=== PATIENT | female | born 1975 | race Caucasian/White ===

== ENCOUNTER 2018-10-11 00:31 | Outpatient (CLI) | payer OTHER, SELFPAY ==
--- NOTE | 2018-10-11 14:29 | DI.RAD_ITS ---
SYMPTOMS/DIAGNOSIS: VITAMIN D DEFICIENCY, E55.9 DEXA SCAN: Routine examination. Evaluation of the lateral spine shows no compression deformities. Evaluation of the lumbar spine shows a total T score of 0.1 and a Z score of 0.6. Evaluation of the left hip shows a total T score of 0.5 and a Z score of 0.8, which are within normal limits. No osteoporosis or osteopenia is present. IMPRESSION: No evidence of osteoporosis.
== END 2018-10-11 00:51 ==
PROVIDERS: Visit Provider Nurse Practitioner
DX: E55.9 Vitamin D deficiency, unspecified (principal)
CPT/HCPCS: 77080

== ENCOUNTER 2019-03-15 15:20 | Outpatient (CLI) | payer OTHER, SELFPAY ==
[2019-03-15 16:36] LABS: Iron 57 ug/dL (50-175)
[2019-03-15 16:42] LABS: Hemoglobin A1C 5.4 % (4.5-6.2)
[2019-03-15 16:45] LABS: Ferritin 121 ng/mL (8-388); TSH 2.56 uIU/mL (0.358-3.74)
[2019-03-16 08:50] LABS: Vitamin D 25 Total 63.9 ng/ml (30-100)
== END 2019-03-15 15:40 ==
PROVIDERS: Visit Provider Nurse Practitioner Family
DX: Z98.84 Bariatric surgery status (principal)
CPT/HCPCS: 36415; 82306; 82728; 83036; 83540; 84443

== ENCOUNTER 2019-12-16 09:48 | Outpatient (CLI) | payer OTHER, SELFPAY ==
[2019-12-16 10:34] LABS: HCT 43.5 % (36.0-46.0); HGB 13.7 g/dL (12.0-15.5); Mean Corp. HGB Concentration 31.5 g/dL (32.0-36.0); Mean Corpuscular Hemoglobin 29.3 pg (27.0-33.0); Mean Corpuscular Volume 92.9 fL (80-95); Mean Platelet Volume 9.5 fL (8.0-11.0); Platelet Count 415 x1000/uL (130-400); RBC 4.68 m/cumm (4.00-5.20); RBC Distribution Width 13.7 % (11.7-14.6); White Blood Cell Count 7.97 k/cumm (4.4-10.8)
[2019-12-16 11:16] LABS: Iron 95 ug/dL (50-170); Total Iron Binding Capacity 288 ug/dL (250-450); Transferrin Sat 33 % (15-50)
[2019-12-16 11:42] LABS: ALT 43 U/L (14-59); AST 23 U/L (15-37); Ferritin 149 ng/mL (8-252); TSH (W/Ref FT4) 2.96 uIU/mL (0.36-3.74); Vitamin B12 1109 pg/mL (193-986)
[2019-12-18 12:16] LABS: Parathyroid Hormone,Intact 60 pg/mL (19-88)
[2019-12-19 07:53] LABS: Thiamine (Vitamin B1), WB 181 nmol/L (70-180)
[2019-12-20 01:33] LABS: Free Retinol (Vitamin A) 49.3 mcg/dL (32.5-78.0)
[2019-12-22 12:23] LABS: 1,25-Dihydroxyvitamin D 64 pg/mL (18-78)
== END 2019-12-16 10:08 ==
PROVIDERS: PCP Nurse Practitioner Family; Visit Provider Nurse Practitioner Family
DX: E66.01 Morbid (severe) obesity due to excess calories (principal); Z98.84 Bariatric surgery status; E21.5 Disorder of parathyroid gland, unspecified; E83.50 Unspecified disorder of calcium metabolism
CPT/HCPCS: 36415; 85027; 82310; 82607; 82652; 82728; 83540; 83550; 83970; 84425; 84443; 84450; 84460; 84590

== ENCOUNTER 2020-06-13 08:47 | Outpatient (REF) | payer OTHER, SELFPAY ==
[2020-06-13 21:47] LABS: Calculated LDL 144 mg/dL (<100); Cholesterol 217 mg/dL (<200); HDL Cholesterol 43 mg/dL (40-60); Triglyceride 153 mg/dL (<150)
[2020-06-17 11:10] LABS: HIV-1/2 Ag & Ab Screen Negative (Negative)
== END 2020-06-13 09:07 ==
LOC: NCHCN 08:47
PROVIDERS: PCP Nurse Practitioner Family; Visit Provider Nurse Practitioner Family
DX: R73.03 Prediabetes (principal); E55.9 Vitamin D deficiency, unspecified; K75.81 Nonalcoholic steatohepatitis (NASH); Z11.4 Encounter for screening for human immunodeficiency virus [HIV]; E11.319 Type 2 diabetes mellitus with unspecified diabetic retinopathy without macular edema; E66.01 Morbid (severe) obesity due to excess calories; M79.7 Fibromyalgia; K58.9 Irritable bowel syndrome, unspecified; G47.30 Sleep apnea, unspecified
CPT/HCPCS: 80061; 87389

== ENCOUNTER 2021-02-24 16:54 | Outpatient (REF) | payer OTHER, SELFPAY ==
[2021-02-25 11:33] LABS: COVID-19 RT-PCR UVMMC Result Negative (Negative)
== END 2021-02-24 16:55 | disposition home or self-care (01) ==
LOC: NCHCN 16:54
PROVIDERS: PCP Nurse Practitioner Family; Visit Provider Nurse Practitioner Family
DX: Z20.828 Contact with and (suspected) exposure to other viral communicable diseases (principal)
CPT/HCPCS: U0003

== ENCOUNTER 2021-02-28 12:08 | Outpatient (REF) | payer OTHER, SELFPAY ==
[2021-03-01 16:55] LABS: COVID-19 RT-PCR UVMMC Result Negative (Negative)
== END 2021-02-28 12:09 | disposition home or self-care (01) ==
LOC: NCHCN 12:08
PROVIDERS: PCP Nurse Practitioner Family; Visit Provider Nurse Practitioner Family
DX: Z20.828 Contact with and (suspected) exposure to other viral communicable diseases (principal)
CPT/HCPCS: U0003

== ENCOUNTER 2021-04-30 15:17 | Outpatient (REF) | payer OTHER, SELFPAY ==
[2021-05-01 10:58] LABS: HIV-1/2 Ag & Ab Screen Negative (Negative)
[2021-05-01 11:12] LABS: Hepatitis C Ab w Rflx HCV PCR Negative (Negative)
[2021-05-01 11:21] LABS: Syphilis Serology (RPR) Negative (Negative)
[2021-05-01 11:48] LABS: Hepatitis B Surface Ag Negative (Negative)
[2021-05-01 12:22] LABS: Hep B Core Antibody Negative (Negative)
[2021-05-01 13:34] LABS: Chlamydia Result Negative (Negative); GC Result Negative (Negative)
== END 2021-04-30 15:18 | disposition home or self-care (01) ==
LOC: NCHCN 15:17
PROVIDERS: PCP Nurse Practitioner Family; Visit Provider Nurse Practitioner Family
DX: Z11.3 Encounter for screening for infections with a predominantly sexual mode of transmission (principal); Z11.59 Encounter for screening for other viral diseases; Z11.4 Encounter for screening for human immunodeficiency virus [HIV]; N76.0 Acute vaginitis
CPT/HCPCS: 86704; 86803; 87340; 87389; 87491; 87591; 86592; 87480; 87510; 87660

== ENCOUNTER 2021-10-17 11:39 | Outpatient (REF) | payer OTHER, SELFPAY ==
[2021-10-19 14:22] LABS: COVID-19 RT-PCR UVMMC Result Negative (Negative)
== END 2021-10-17 11:40 | disposition home or self-care (01) ==
LOC: LBN 11:39
PROVIDERS: PCP Nurse Practitioner Family; Visit Provider Physician Assistant
DX: Z20.822 Contact with and (suspected) exposure to COVID-19 (principal)
CPT/HCPCS: U0003

== ENCOUNTER 2021-10-29 10:14 | Outpatient (REF) | payer OTHER, SELFPAY ==
--- NOTE | 2021-10-29 08:30 | PAPFT_PTH ---
PATIENT: Katlin Reyes LOC: [facility]#:[id number] AGE/SX: 46/F ROOM: RE10/29/[address]: Latha Wilson : 1975 BED: DIS: 10/29/2021 SPEC #: [id number] RECD: 10/30/21 12:39 STATUS: CANDIS RECaren #: [id number] GLORIA: 10/29/21 08:[address]: Latha Wilson DEPT: [facility] Cytology RECD BY: Sridevi Rubio Tissues: 1 - CX/ENDOCX FOR PAP SMEARS Procedures: PAP THIN PREP/[facility] Screening HPV DNA PROBE Comments: [id number] (CHLAMYDIA/GC)
[2021-10-29 22:53] LABS: Alkaline Phosphatase 115 U/L (46-116)
[2021-10-31 10:03] LABS: IgG 1062 mg/dL (610-1,616); IgM 261 mg/dL (35-242)
[2021-10-31 14:19] LABS: ANA Interpretation Positive (Negative); ANA Titer Pattern 1:320 Speckled
[2021-10-31 15:10] LABS: Chlamydia Result Negative (Negative); GC Result Negative (Negative)
[2021-10-31 16:09] LABS: Smooth Muscle Ab Screen Negative (Negative)
== END 2021-10-29 10:15 | disposition home or self-care (01) ==
LOC: NCHCN 10:14
PROVIDERS: PCP Nurse Practitioner Family; Visit Provider Nurse Practitioner Family
DX: K75.81 Nonalcoholic steatohepatitis (NASH) (principal); Z12.4 Encounter for screening for malignant neoplasm of cervix; Z11.51 Encounter for screening for human papillomavirus (HPV); Z11.3 Encounter for screening for infections with a predominantly sexual mode of transmission; R87.610 Atypical squamous cells of undetermined significance on cytologic smear of cervix (ASC-US); R87.810 Cervical high risk human papillomavirus (HPV) DNA test positive
CPT/HCPCS: 82784; 87491; 87591; 88142; 84075; 86038; 86255; 87624

== ENCOUNTER 2021-12-12 02:48 | Outpatient (CLI) | payer OTHER, SELFPAY ==
--- NOTE | 2021-12-12 | DI.DEXA_ITS ---
Exam(s) XR DEXA BONE DENSITY W/WO LETY EXAM: XR DEXA BONE DENSITY W/WO LETY CLINICAL HISTORY: SCREENING FOR OSTEOPOROSIS, Z13.820,H/O BARIATRIC SURGERY,Z98.84 TECHNIQUE: Routine DEXA evaluation of the lumbar spine, hip, or forearm. COMPARISON: Prior DEXA scan September 2018 FINDINGS: Performed on a HoloFormaFina unit. Lateral image: No compression fracture evident. Lumbar Spine total T-score: 0.1. This is identical reading to the September 2000 study Hip total T-score:0.2. Two thousand eighteen reading was 0.5. Independent reading at the level of the femoral neck yields at T-score of -0.5. IMPRESSION: Bone mineral density measures in the normal range. Fracture risk is low. Note: Any spine fracture indicates 5x risk for subsequent spine fracture and 2x risk for subsequent h ip fracture. World Health Organization criteria for BMD interpretation classify patients: Normal...... T- Score at or above -1.0 Osteopenic... T- Score between -1.0 and -2.5 Osteoporosis... T-Score at or below -2.5
== END 2021-12-12 03:08 ==
PROVIDERS: PCP Nurse Practitioner Family; Visit Provider Nurse Practitioner Family
DX: Z13.820 Encounter for screening for osteoporosis (principal); Z98.84 Bariatric surgery status
CPT/HCPCS: 77080

== ENCOUNTER 2022-07-02 17:06 | Outpatient (REF) | payer OTHER, SELFPAY ==
[2022-07-02 21:44] LABS: ALT 29 U/L (14-59); AST 18 U/L (15-37); Albumin 3.5 g/dL (3.4-5.0); Alkaline Phosphatase 109 U/L (46-116); Anion Gap 7.4 mmol/L (3-11); BUN 14 mg/dL (7-18); Bilirubin, Total 0.2 mg/dL (0.2-1.0); CO2 26.6 mmol/L (21.0-32.0); CREATININE 0.7 mg/dL (0.55-1.02); Calcium 8.5 mg/dL (8.5-10.1); Chloride 105 mmol/L (98-107); Glucose 91 mg/dL (74-106); Sodium 139 mmol/L (136-145); Total Protein 6.8 g/dL (6.4-8.2)
[2022-07-05 06:44] LABS: COVID-19 RT-PCR UVMMC Result Positive (Negative)
== END 2022-07-02 17:07 | disposition home or self-care (01) ==
LOC: LBN 17:06
PROVIDERS: PCP Nurse Practitioner Family; Visit Provider Physician Assistant Medical
DX: Z20.822 Contact with and (suspected) exposure to COVID-19 (principal); J34.89 Other specified disorders of nose and nasal sinuses; Z11.52 Encounter for screening for COVID-19
CPT/HCPCS: 80053; U0003

== ENCOUNTER 2022-08-20 09:55 | Outpatient (CLI) | payer OTHER, SELFPAY ==
--- NOTE | 2022-08-20 09:00 | DI.RAD_ITS ---
Exam(s) XR FOOT RT COMPLETE EXAM: XR FOOT RT COMPLETE CLINICAL HISTORY: for comparison TENDINITIS OF ANKLE M77.50 ENTHESOPATHY. TECHNIQUE: 2D digital imaging was performed. Three views. COMPARISON: CR XR FOOT LT COMPLETE from 08/20/2022 FINDINGS: BONES: The bones are normally mineralized. No acute fracture is present. No bony destructive lesion is seen. There is a plantar calcaneal spur is well as a small enthesophyte at the Achilles insertion . JOINTS: No dislocation present. There are minimal degenerative changes. SOFT TISSUE: Normal. IMPRESSION: Heel spurs. DATA REPOSITORY: RADIATION DOSE DELIVERED:
--- NOTE | 2022-08-20 09:00 | DI.RAD_ITS ---
Exam(s) XR FOOT LT COMPLETE EXAM: XR FOOT LT COMPLETE CLINICAL HISTORY: recalcitrant L midfoot plan (PT insertion) M77.50ENTHESOPATHY M79.672 PAIN. TECHNIQUE: 2D digital imaging was performed. Three views. COMPARISON: No exams were available for comparison FINDINGS: BONES: No acute fracture is present. No bony destructive lesion is seen. Small spur at the Achilles i nsertion. Minimal plantar calcaneal spur. . JOINTS: No dislocation present. Minimal degenerative changes SOFT TISSUE: Normal. IMPRESSION: Small heel spurs. DATA REPOSITORY: RADIATION DOSE DELIVERED:
== END 2022-08-20 10:15 ==
LOC: DI 10:01
PROVIDERS: PCP Nurse Practitioner Family; Visit Provider Podiatrist Foot & Ankle Surgery
DX: M77.32 Calcaneal spur, left foot; M77.31 Calcaneal spur, right foot
CPT/HCPCS: 73630

== ENCOUNTER 2023-01-25 01:30 | Outpatient (CLI) | payer OTHER, SELFPAY ==
--- NOTE | 2023-01-25 06:45 | DI.MRI_ITS ---
Exam(s) MR LOWER EXTREMITY LT WO EXAM: MR LOWER EXTREMITY LT WO CLINICAL HISTORY: L foot and ankle pain,tendinitis,m79.672,m77.50. TECHNIQUE: Multiplanar multisequence MRI was performed. COMPARISON: CR XR FOOT LT COMPLETE from 08/20/2022 FINDINGS: BONES/JOINTS: No evidence of fracture. No evidence of bone lesion. No joint space narrowing identifie d. No joint effusion identified. There is a small spur at the plantar surface of the calcaneus. The re is mild subchondral edema seen at the articulations between the navicular and the cuneiform is a a nd the 2nd and 3rd tarsometatarsal joints. These are likely degenerative in nature. Similar finding s are also seen at the calcaneocuboid joint. There is a small subchondral cysts seen at the medial a spect of the talar dome. LIGAMENTS: Grossly unremarkable. The Lisfranc ligaments are intact. MUSCULOTENDINOUS STRUCTURES: Visualized portion of the planar fascia is unremarkable. The visualized intrinsic muscles and tendons of the foot are unremarkable. SOFT TISSUES: Unremarkable. OTHER FINDINGS: None. IMPRESSION: 1. Findings suggestive of degenerative changes seen in the tarsal bones and the tarsometatarsal joint s. 2. No evidence of a muscular, tendinous or ligament tear. 3. Subchondral cyst seen in the medial aspect of the talar dome. This may represent an osteochondral lesion of the talar dome. DATA REPOSITORY:
== END 2023-01-25 01:50 ==
LOC: DI 01:30
PROVIDERS: PCP Nurse Practitioner Family; Visit Provider Podiatrist Foot & Ankle Surgery
DX: M79.672 Pain in left foot (principal); M77.52 Other enthesopathy of left foot and ankle; M25.572 Pain in left ankle and joints of left foot; M19.072 Primary osteoarthritis, left ankle and foot
CPT/HCPCS: 73718

== ENCOUNTER 2023-11-30 21:36 | Outpatient (REF) | payer BC, SELFPAY | END 2023-11-30 21:37 | disposition home or self-care (01) | LOC: LBN 21:36 | PROVIDERS: PCP Nurse Practitioner Family; Visit Provider Nurse Practitioner Family | DX: N30.01 Acute cystitis with hematuria (principal) | CPT/HCPCS: 87086 ==

== ENCOUNTER 2024-04-12 09:31 | Outpatient (REF) | payer BC, SELFPAY ==
[2024-04-12 14:54] LABS: ALT 30 U/L (14-59); AST 14 U/L (15-37); Albumin 3.6 g/dL (3.4-5.0); Alkaline Phosphatase 117 U/L (46-116); Anion Gap 10.2 mmol/L (3-11); BUN 10 mg/dL (7-18); Bilirubin, Total 0.4 mg/dL (0.2-1.0); CO2 25.8 mmol/L (21.0-32.0); CREATININE 0.8 mg/dL (0.55-1.02); Calcium 9.1 mg/dL (8.5-10.1); Calculated LDL 151 mg/dL (<100); Chloride 108 mmol/L (98-107); Cholesterol 221 mg/dL (<200); Estimated GFR 89.71 (mL/min/1.73m2); Glucose 91 mg/dL (74-106); HDL Cholesterol 49 mg/dL (40-60); Potassium 4.2 mmol/L (3.5-5.1); Sodium 144 mmol/L (136-145); Total Protein 7.4 g/dL (6.4-8.2); Triglyceride 109 mg/dL (<150)
[2024-04-12 15:12] LABS: Vitamin D 25 Total 57.3 ng/mL (30-100)
== END 2024-04-12 09:32 | disposition home or self-care (01) ==
LOC: NCHCN 09:31
PROVIDERS: PCP Nurse Practitioner Family; Visit Provider Nurse Practitioner Family
DX: Z68.42 Body mass index [BMI] 45.0-49.9, adult (principal); E55.9 Vitamin D deficiency, unspecified
CPT/HCPCS: 80053; 80061; 82306

== ENCOUNTER 2024-06-27 17:44 | Outpatient (REF) | payer BC, SELFPAY ==
[2024-06-27 21:16] LABS: HCT 44.1 % (36.0-46.0); MCHC 31.7 % (32.0-36.0); MCV 92 fL (80-95); MPV 10.3 fL (8.0-11.0); Platelet Count 466 10^3/uL (130-400); RBC 4.82 10^6/uL (3.93-5.22); RDW 12.9 % (11.7-14.6); RDW-SD 43.1 fL; WBC 9.45 10^3/uL (4.4-10.8)
[2024-06-27 21:18] LABS: Bilirubin Negative (Negative); Blood Trace-lysed (Negative); Clarity Clear (Clear); Glucose Negative (Negative); Ketones 40 mg/dL (Negative); Leukocyte Esterase Negative (Negative); Nitrite Negative (Negative); Specific Gravity 1.025 (1.005-1.025); Urobilinogen 0.2 mg/dL (Up to 0.2); pH 6.5 (5-8)
[2024-06-27 21:33] LABS: Bacteria Negative HPF (Negative); C & S Indicated? No; Casts Negative LPF (Negative); Crystals Mod Calcium Oxalate HPF (Negative); Epithelial Cells Few HPF (Negative); Mucus Negative (Negative); WBC 0-2 HPF (0-5)
[2024-06-27 21:46] LABS: ALT 36 U/L (14-59); AST 20 U/L (15-37); Albumin 3.9 g/dL (3.4-5.0); Alkaline Phosphatase 128 U/L (46-116); BUN 12 mg/dL (7-18); Bilirubin, Total 0.56 mg/dL (0.2-1.0); CREATININE 0.7 mg/dL (0.55-1.02); Calcium 9.2 mg/dL (8.5-10.1); Chloride 105 mmol/L (98-107); Ferritin 128 ng/mL (8-252); Glucose 88 mg/dL (74-106); Magnesium 2.2 mg/dL (1.8-2.4); Potassium 4.7 mmol/L (3.5-5.1); Sodium 141 mmol/L (136-145); TSH (W/Ref FT4) 1.96 uIU/mL (0.36-3.74); Total Protein 7.7 g/dL (6.4-8.2)
[2024-06-27 22:23] LABS: Iron 78 ug/dL (50-170); Total Iron Binding Capacity 320 ug/dL (250-450); Transferrin Sat 24 % (15-50)
[2024-06-29 10:35] LABS: IgA 254 mg/dL (85-499); Interpretation (See Note); Tissue Transglutaminase IgA <4.0 CU (<20.0)
== END 2024-06-27 17:45 | disposition home or self-care (01) ==
LOC: NCHCN 17:44
PROVIDERS: PCP Nurse Practitioner Family; Visit Provider Nurse Practitioner Family
DX: K90.49 Malabsorption due to intolerance, not elsewhere classified (principal); R63.4 Abnormal weight loss; M79.18 Myalgia, other site; R35.0 Frequency of micturition
CPT/HCPCS: 80053; 82784; 83516; 85027; 81003; 81015; 82728; 83540; 83550; 83735; 84443

== ENCOUNTER 2024-08-01 02:21 | Outpatient (CLI) | payer BC, SELFPAY ==
--- NOTE | 2024-08-01 | DI.MRI_ITS ---
Exam(s) MR BRAIN WO EXAM: MR BRAIN WO CLINICAL HISTORY: R51.9 Headache unspecified TECHNIQUE: Multiplanar multisequence MRI of the brain was performed. COMPARISON: No exams were available for comparison FINDINGS: VENTRICLES AND EXTRA AXIAL SPACES: Normal in size and morphology for the patient's age. There is a 4 mm extra-axial nodule along the left high convexity likely reflecting a meningioma. MIDLINE SHIFT: None. CEREBRAL PARENCHYMA: No focus of restricted diffusion to suggest acute infarct. No space-occupying le zev identified. HEMORRHAGE: None. BRAINSTEM/CEREBELLUM: Normal. CALVARIUM: Normal. VISUALIZED PARANASAL SINUSES/MASTOIDS:Clear. [place] OF [place]: Normal flow void. PITUITARY GLAND: Note is made of a partially empty sella. OTHER FINDINGS: None. IMPRESSION: 1. No intraparenchymal mass or infarct. 2. 4 mm extra-axial nodule along the left high convexity likely reflecting a small meningioma. 3. Note is made of a partially empty sella. DATA REPOSITORY:
--- NOTE | 2024-08-01 | DI.US_ITS ---
Exam(s) US RENAL EXAM: US RENAL CLINICAL HISTORY: R82.998 Other abnormal findings in urine. TECHNIQUE: Faustin scale, color and spectral Doppler were used. COMPARISON: CT ABD PELVIS WITH CONTRAST from 10/05/2017 US US ABDOMEN from 11/13/2022 FINDINGS: Renal size in cm: Right: 11.4. Left: 11.4. Echogenicity: Normal. Hydronephrosis: No. Cyst or mass: There is a 1.3 x 1.1 x 1.5 cm anechoic lesion in the left kidney suggestive of a cyst. No follow-up is recommended. Nephrolithiasis: No obstructing renal stones. There is a echogenic focus in right kidney parenchyma. Other findings: None. Bladder:Normal. Ureteral jets: Right: Visualized and unremarkable. Left: Visualized and unremarkable. Prevoid vol:121 cc Postvoid vol:11 cc Renal color flow: Symmetric and within normal limits. IMPRESSION: No evidence of obstructive uropathy. DATA REPOSITORY:
== END 2024-08-01 02:41 ==
LOC: DI 02:21
PROVIDERS: PCP Nurse Practitioner Family; Visit Provider Nurse Practitioner Family
DX: R82.89 Other abnormal findings on cytological and histological examination of urine (principal); D32.0 Benign neoplasm of cerebral meninges
CPT/HCPCS: 76770; 70551

== ENCOUNTER 2024-08-16 17:51 | Outpatient (REF) | payer BC, SELFPAY ==
[2024-08-16 14:52] LABS: Folate > 20.0 ng/mL (8.6-20.0)
[2024-08-16 14:57] LABS: GGT 32 U/L (5-55)
[2024-08-16 21:25] LABS: Vitamin B12 584 pg/mL (193-986)
[2024-08-17 21:05] LABS: Parathyroid Hormone,Intact 46 pg/mL (19-88)
== END 2024-08-16 17:52 | disposition home or self-care (01) ==
LOC: NCHCN 17:51
PROVIDERS: PCP Nurse Practitioner Family; Visit Provider Nurse Practitioner Family
DX: R74.8 Abnormal levels of other serum enzymes (principal); K12.0 Recurrent oral aphthae
CPT/HCPCS: 82607; 82746; 82977; 83970

== ENCOUNTER 2025-05-11 10:07 | Outpatient (CLI) | payer BC, SELFPAY ==
[2025-05-11 10:40] LABS: Abs Immature Grans 0.03 10^3/uL (0.0-0.06); Absolute Basophil Count 0.12 10^3/uL (0.0-0.2); Absolute Eosinophil Count 1.24 10^3/uL (0.0-0.7); Absolute Lymphocyte Count 1.76 10^3/uL (1.2-3.4); Absolute Monocyte Count 0.65 10^3/uL (0.1-0.8); Absolute Neutrophil Count 6.81 10^3/uL (1.2-6.7); Basophils % 1.1 %; Eosinophils % 11.7 %; HCT 44.4 % (36.0-46.0); HGB 14.1 g/dL (11.2-15.7); Immature Grans % 0.3 %; Lymphocytes % 16.6 %; MCH 29.1 pg (27.0-33.0); MCHC 31.8 % (32.0-36.0); MCV 92 fL (80-95); MPV 9.5 fL (8.0-11.0); Monocytes % 6.1 %; Neutrophils % 64.2 %; Platelet Count 480 10^3/uL (130-400); RBC 4.84 10^6/uL (3.93-5.22); RDW 13.5 % (11.7-14.6); RDW-SD 45.9 fL; WBC 10.61 10^3/uL (4.4-10.8)
[2025-05-11 10:41] LABS: Bilirubin Negative (Negative); Blood Trace-intact (Negative); Clarity Sl Cloudy (Clear); Glucose Negative (Negative); Ketones Negative (Negative); Leukocyte Esterase Large (Negative); Nitrite Negative (Negative); Urobilinogen 0.2 mg/dL (Up to 0.2); pH 8.5 (5-8)
[2025-05-11 10:48] LABS: Bacteria Many HPF (Negative); C & S Indicated? No; Casts Negative LPF (Negative); Crystals Negative HPF (Negative); Epithelial Cells Many HPF (Negative); Mucus Negative (Negative)
[2025-05-11 11:27] LABS: Iron 84 ug/dL (50-170); Total Iron Binding Capacity 328 ug/dL (250-450); Transferrin Sat 26 % (15-50)
[2025-05-11 11:38] LABS: ALT 30 U/L (14-59); AST 15 U/L (15-37); Albumin 3.7 g/dL (3.4-5.0); Alkaline Phosphatase 127 U/L (46-116); Anion Gap 6.7 mmol/L (3-11); BUN 13 mg/dL (7-18); Bilirubin, Total 0.5 mg/dL (0.2-1.0); CO2 30.3 mmol/L (21.0-32.0); CREATININE 0.9 mg/dL (0.55-1.02); Calcium 9.2 mg/dL (8.5-10.1); Calculated LDL 172 mg/dL (<100); Chloride 105 mmol/L (98-107); Cholesterol 250 mg/dL (<200); Glucose 92 mg/dL (74-106); HDL Cholesterol 49 mg/dL (>or=50); Potassium 3.9 mmol/L (3.5-5.1); Sodium 142 mmol/L (136-145); TSH 2.12 uIU/mL (0.36-3.74); Total Protein 7.9 g/dL (6.4-8.2); Triglyceride 145 mg/dL (<150)
[2025-05-11 11:54] LABS: FREE T4 1.03 ng/dL (0.76-1.46)
== END 2025-05-11 10:08 | disposition home or self-care (01) ==
PROVIDERS: PCP Nurse Practitioner Family; Visit Provider Registered Nurse
DX: F41.1 Generalized anxiety disorder (principal); F43.23 Adjustment disorder with mixed anxiety and depressed mood; F33.1 Major depressive disorder, recurrent, moderate; E66.01 Morbid (severe) obesity due to excess calories
CPT/HCPCS: 36415; 80053; 80061; 81003; 81015; 83540; 83550; 84439; 84443; 85025

== ENCOUNTER 2025-11-09 07:46 | Emergency (ER) | payer BC, SELFPAY ==
[2025-11-09 07:49] VITALS: BP 162/94; PULSE 83; RESP 18; TEMP 36.4; O2SAT 99
[2025-11-09 08:10] LABS: Abs Immature Grans 0.03 10^3/uL (0.0-0.06); HCT 43.6 % (36.0-46.0); HGB 13.9 g/dL (11.2-15.7); Immature Grans % 0.3 %; MCH 28.6 pg (27.0-33.0); MCHC 31.9 % (32.0-36.0); MCV 90 fL (80-95); MPV 9.3 fL (8.0-11.0); Platelet Count 448 10^3/uL (130-400); RBC 4.86 10^6/uL (3.93-5.22); RDW 13.1 % (11.7-14.6); RDW-SD 42.9 fL; WBC 8.79 10^3/uL (4.4-10.8)
--- NOTE | 2025-11-09 08:15 | W.ED.GENAD ---
Discharge Plan Disposition Patient Disposition: Home Condition: Stable Discharge Details Clinical Impression: Abdominal pain Primary Care Provider: Latha Wilson ED Provider: Willi Dailey Home Meds and New Rx's Prescriptions: Continued vitamin B complex [B Complex-Vitamin B12] Tablet 1 tab PO DAILY multivitamin Tablet 1 tab PO DAILY nystatin 100,000 unit/gram cream 1 applic topical DAILY PRN buspirone 7.5 mg tablet 15 mg PO BID cholecalciferol (vitamin D3) 25 mcg (1,000 unit) capsule 50 mcg PO DAILY fluticasone propionate 16 GM spray,suspension 16 g NS DAILY duloxetine [Cymbalta] 60 MG capsule,delayed release(DR/EC) 60 mg PO DAILY gabapentin 400 mg capsule 400 mg PO BID lamotrigine 100 mg tablet 100 mg PO DAILY propranolol 10 mg tablet 10 mg PO DAILY bupropion HCl 75 mg tablet 75 mg PO DAILY calcium 600 mg capsule 600 mg PO BID magnesium glycinate 100 mg magnesium capsule 400 mg PO DAILY L-theanine 200 mg PO DAILY progesterone 200 mg PO DAILY estradiol 1 mg tablet 1 mg PO DAILY Patient Comments: TAKE ONE TABLET BY MOUTH EVERY EVENING Discontinued mirtazapine 45 mg tablet 45 mg PO DAILY glucosamine-chondroitin [Cosamin DS] 500-400 mg tablet 1 tab PO DAILY Discharge Instructions Instructions: Abdominal Pain, Adult ED Additional Instructions: Please follow-up with your primary care physician. Return to the emergency department immediately for any worsening or new concerning symptoms. Stand Alone Forms: Portal Information Referrals: Latha Wilson [Primary Care Provider, Medicine] - 5 days Referral Note: ED follow up Discharge Data Discharge Date/Time-TO BE ENTERED AT DEPARTURE: 11/09/25 12:00 HPI General Mode of arrival: ambulatory. Date/Time Provider Initiated Documentation: 11/09/25 07:47. Limitations to Documentation: no limitations. Information obtained by: patient. HPI Narrative: 50yo female with history of prior bariatric surgery, cholecystectomy, PCOS, IBS, here with chief complaint of abdominal pain. Patient notes right mid abdominal pain and flank pain that started suddenly around 5 AM this morning. Pain described as dull ache with intermittent sharp crampy pain. Pain is severe at times. Currently 4/10. No associated nausea vomiting or diarrhea. No melena or bright red blood per rectum. Last normal bowel movement was this morning. No associated fever. No rash. Patient notes she was asymptomatic yesterday. She has never had similar pain before. Related Data Home Medications ?Medication ?Instructions ?Recorded ?Confirmed duloxetine 60 mg capsule,delayed 60 mg PO DAILY 10/05/17 11/09/25 release (Cymbalta) fluticasone propionate 50 16 g NS DAILY 10/05/17 11/09/25 mcg/actuation nasal spray,suspension multivitamin 1 tab PO DAILY 08/19/22 11/09/25 nystatin 100,000 unit/gram topical 1 applic topical DAILY PRN 08/19/22 11/09/25 cream vitamin B complex (B 1 tab PO DAILY 08/19/22 11/09/25 Complex-Vitamin B12 tablet) buspirone 7.5 mg tablet 15 mg PO BID 08/20/22 11/09/25 cholecalciferol (vitamin D3) 25 50 mcg PO DAILY 08/20/22 11/09/25 mcg (1,000 unit) capsule L-theanine 200 mg PO DAILY 11/09/25 11/09/25 bupropion HCl 75 mg tablet 75 mg PO DAILY 11/09/25 11/09/25 calcium 600 mg capsule 600 mg PO BID 11/09/25 11/09/25 estradiol 1 mg tablet 1 mg PO DAILY 11/09/25 11/09/25 gabapentin 400 mg capsule 400 mg PO BID 11/09/25 11/09/25 lamotrigine 100 mg tablet 100 mg PO DAILY 11/09/25 11/09/25 magnesium glycinate 400 mg PO DAILY 11/09/25 11/09/25 progesterone 200 mg PO DAILY 11/09/25 11/09/25 propranolol 10 mg tablet 10 mg PO DAILY 11/09/25 11/09/25 Allergies Allergy/AdvReac Type Severity Reaction Status Date / Time metformin (From Glucophage) AdvReac Mild to regular Unverified 11/09/25 07:53 formula (able to tolerate XR) General Stated Complaint: Abd Prob ETHAN: 3 Exam Const General: cooperative and uncomfortable HENMT Mouth: moist mucous membranes Eyes Conjunctivae: normal conjunctivae Sclera: normal sclerae EOM: EOM intact bilaterally Neck Neck: supple Resp Auscultation: clear to auscultation bilaterally, no rales, no rhonchi and no wheezes Cardio Jugular venous pressure: no JVD Rate: regular rate and not tachycardic Rhythm: regular rhythm GI Palpation: soft, not firm, no guarding, no masses, not rigid and tender in the RUQ (Upper to mid abdomen laterally) Auscultation: normal bowel sounds Skin General skin exam: no rashes or lesions noted Neuro General: patient alert, patient awake and tone normal Extrem General: no edema Psych Appearance: grossly normal Mental Status: mental status grossly normal Course Vital Signs Vital signs: Vital Signs Temperature 36.4 C L 11/09/25 07:49 Pulse 83 11/09/25 07:49 Respiratory Rate 18 11/09/25 07:49 Blood Pressure 162/94 H 11/09/25 07:49 Pulse Oximetry 99 11/09/25 07:49 Temperature 36.4 C L 11/09/25 07:49 Temperature Source Tympanic 11/09/25 07:49 Pulse 83 11/09/25 07:49 Respiratory Rate 18 11/09/25 07:49 Blood Pressure 162/94 H 11/09/25 07:49 Blood Pressure Position Sitting 11/09/25 07:49 Pulse Oximetry 99 11/09/25 07:49 Oxygen Delivery Method Room Air 11/09/25 07:49 Oxygen Flow Rate 0 11/09/25 07:49 Pain Level 6 11/09/25 07:49 Lab/Test Results Lab/Test Results: Laboratory Tests Range/Units 11/09/25 07:55 WBC (4.4-10.8) 10^3/uL 8.79 RBC (3.93-5.22) 10^6/uL 4.86 Hgb (11.2-15.7) g/dL 13.9 Hct (36.0-46.0) % 43.6 MCV (80-95) fL 90 MCH (27.0-33.0) pg 28.6 MCHC (32.0-36.0) % 31.9 L RDW (11.7-14.6) % 13.1 Plt Count (130-400) 10^3/uL 448 H MPV (8.0-11.0) fL 9.3 Immature Gran % % 0.3 Neutrophils % % 64.5 Lymphocytes % % 21.0 Monocytes % % 6.7 Eosinophils % % 6.8 Basophils % % 0.7 Nucleated RBC % (0.0-0.3) % 0.0 Absolute Neutrophils (1.2-6.7) 10^3/uL 5.66 Absolute Lymphocytes (1.2-3.4) 10^3/uL 1.85 Absolute Monocytes (0.1-0.8) 10^3/uL 0.59 Absolute Eosinophils (0.0-0.7) 10^3/uL 0.60 Absolute Basophils (0.0-0.2) 10^3/uL 0.06 Medical Decision Making 815 -- 50-year-old female with history of prior bariatric surgery, status post remote cholecystectomy, IBS, PCOS, here with severe crampy abdominal pain in her right mid upper abdomen that started this morning suddenly at 5 AM. Patient is hypertensive 162/94. Afebrile. She has tenderness in her right mid to upper abdomen with no peritoneal findings. Consider acute intra-abdominal surgical pathology including obstructing renal stone versus biliary ductal stone versus less likely bowel obstruction. Plan to obtain CT of the abdomen and pelvis. Labs including CBC, LFTs, lipase, urinalysis. Patient to be administered Dilaudid 1 mg IV for analgesia. --Patient continues to have pain. Will give Toradol 15 mg IV. 1140 --labs reviewed and nondiagnostic. No leukocytosis. Normal LFTs. CT of the abdomen pelvis was reviewed and interpreted by radiology: No acute abnormality in the abdomen or pelvis. All results were discussed with the patient. Patient reassessed and notes feeling much better. Plan for discharge with outpatient follow-up with PCP for reassessment early next week. Patient agreeable with plan. Lab Data Lab results reviewed: Yes I reviewed the patient's lab results. Labs: Laboratory Tests Range/Units 11/09/25 11/09/25 07:55 08:01 WBC (4.4-10.8) 10^3/uL 8.79 RBC (3.93-5.22) 10^6/uL 4.86 Hgb (11.2-15.7) g/dL 13.9 Hct (36.0-46.0) % 43.6 MCV (80-95) fL 90 MCH (27.0-33.0) pg 28.6 MCHC (32.0-36.0) % 31.9 L RDW (11.7-14.6) % 13.1 Plt Count (130-400) 10^3/uL 448 H MPV (8.0-11.0) fL 9.3 Immature Gran % % 0.3 Neutrophils % % 64.5 Lymphocytes % % 21.0 Monocytes % % 6.7 Eosinophils % % 6.8 Basophils % % 0.7 Nucleated RBC % (0.0-0.3) % 0.0 Absolute Neutrophils (1.2-6.7) 10^3/uL 5.66 Absolute Lymphocytes (1.2-3.4) 10^3/uL 1.85 Absolute Monocytes (0.1-0.8) 10^3/uL 0.59 Absolute Eosinophils (0.0-0.7) 10^3/uL 0.60 Absolute Basophils (0.0-0.2) 10^3/uL 0.06 Sodium (136-145) mmol/L 143 Potassium (3.5-5.1) mmol/L 4.1 Chloride (98-107) mmol/L 108 H Carbon Dioxide (20.0-31.0) mmol/L 25.8 Anion Gap (3-11) mmol/L 9.2 BUN (9-23) mg/dL 14 Creatinine (0.55-1.02) mg/dL 0.81 Est GFR (CKD-EPI 2020) (mL/min/1.73m2) 74.18 Glucose (74-106) mg/dL 99 Calcium (8.3-10.6) mg/dL 9.3 Magnesium (1.6-2.6) mg/dL 2.1 Total Bilirubin (0.2-1.2) mg/dL 0.4 AST (<34) U/L 22 ALT (10-49) U/L 26 Alkaline Phosphatase (46-116) U/L 122 H Total Protein (5.7-8.2) g/dL 8.0 Albumin (3.2-5.0) g/dL 4.4 Lipase (<53) U/L 39 Urine Color (Yellow) Yellow Urine Clarity (Clear) Clear Urine pH (5-8) 8.5 H Ur Specific [place] (1.005-1.025) 1.015 Urine Protein (Neg-Trace) mg/dL Trace Urine Ketones (Negative) mg/dL Negative Urine Blood (Negative) Negative Urine Nitrite (Negative) Negative Urine Bilirubin (Negative) Negative Urine Urobilinogen (Up to 0.2) mg/dL 0.2 Ur Leukocyte Esterase (Negative) Small H Urine RBC (0-2) HPF Negative Urine WBC (0-5) HPF 0-2 Ur Epithelial Cells (Negative) HPF Few Urine Crystals (Negative) HPF Negative Urine Bacteria (Negative) HPF Few Urine Casts (Negative) LPF 0-2 Hyaline Urine Mucus (Negative) Negative Ur Culture Indicated? No Urine Glucose (Negative) mg/dL Negative PFSH All Active Problems (Updated 11/09/25 @ 11:43 by Willi Dailey MD) Abdominal pain (Acute) Foot pain, left (Acute) Tendinitis of ankle (Acute) Depression (Chronic) Migraines (Chronic) Anxiety (Chronic) Sleep apnea (Acute) Hyperlipidemia (Acute) IBS (irritable bowel syndrome) (Chronic) Fibromyalgia (Acute) PCOS (polycystic ovarian syndrome) (Acute) Drug-induced obesity (Acute) Medical History Deviated septum Rosacea Rhinitis LFT elevation Lump of breast Surgical History H/O wisdom tooth extraction S/P tonsillectomy History of cholecystectomy laproscopic History of colposcopy with LEEP H/O nasal septoplasty H/O adenoidectomy H/O bariatric surgery Social History Smoking/Tobacco Use Status: Former Tobacco Use Smoking risk assessment performed?: Yes Alcohol Intake: never Drug use: Never Substance use type: does not use Number of Children: 2 current occupation: seasonal clerk What is your relationship status?: Panel score (0-1 are the most socially isolated patients): 0 Do you feel safe in your relationship?: Yes
[2025-11-09 08:24] LABS: Lipase 39 U/L (<53); Magnesium 2.1 mg/dL (1.6-2.6)
[2025-11-09] MEDS: HYDROmorphone 2 MG/ML SYR 1 MG IVP (08:25)
[2025-11-09] MEDS: Normal Saline 50 ML (08:25)
[2025-11-09 08:26] LABS: ALT 26 U/L (10-49); AST 22 U/L (<34); Albumin 4.4 g/dL (3.2-5.0); Alkaline Phosphatase 122 U/L (46-116); Anion Gap 9.2 mmol/L (3-11); BUN 14 mg/dL (9-23); Bilirubin, Total 0.4 mg/dL (0.2-1.2); CO2 25.8 mmol/L (20.0-31.0); Calcium 9.3 mg/dL (8.3-10.6); Chloride 108 mmol/L (98-107); Glucose 99 mg/dL (74-106); Potassium 4.1 mmol/L (3.5-5.1); Sodium 143 mmol/L (136-145); Total Protein 8.0 g/dL (5.7-8.2)
[2025-11-09 08:27] LABS: Glucose Negative (Negative)
[2025-11-09 08:37] LABS: C & S Indicated? No; RBC Negative HPF (0-2); WBC 0-2 HPF (0-5)
[2025-11-09 08:41] VITALS: BP 144/68; PULSE 70; RESP 18; O2SAT 97
--- NOTE | 2025-11-09 09:00 | DI.CT_ITS ---
Exam(s) CT ABDOMEN PELVIS W EXAM: CT ABDOMEN PELVIS W CLINICAL HISTORY: pain rt mid/upper abd. TECHNIQUE: Imaging Protocol: Axial computed tomography images with coronal and sagittal reformatted images were created and reviewed CONTRAST MATERIAL: Intravenous: Omnipaque 350 Contrast volume:100 ml Oral: no COMPARISON: CT ABD PELVIS WITH CONTRAST from 10/05/2017 FINDINGS: ABDOMEN and PELVIS: Lung Bases: No acute findings. Liver: Elongated right lobe measuring 25 cm in length. Normal density. No suspicious mass. Gallbladder and biliary tract: Cholecystectomy. No biliary dilatation. Pancreas: Normal density. No abnormal calcifications or inflammatory process. No evidence of mass. Spleen: Normal. Kidneys: Normal size, contour and axis. No radiodense stones. No obstructive uropathy. No suspicious masses seen. Adrenal glands: No masses seen. Vasculature: Abdominal aorta non-dilated. Soft tissues: Unremarkable. Bladder: No gross wall thickening. No calculi.No focal mass. Bowel: Suture material again noted at the stomach and adjacent small bowel, gastric bypass. Small bowel anastomoses are unremarkable. No obstruction. No bowel wall thickening. Appendix normal. Peritoneal cavity: No ascites. No focal collection. No mesenteric inflammatory response. No free air. Bones: Unremarkable for age. Reproductive organs: Unremarkable. IUD in place. Lymph nodes: No pathologically enlarged lymph nodes. IMPRESSION:: No acute abnormality in the abdomen or pelvis. RADIATION DOSE DELIVERED: 1,270.55mGy.cm Total DLP DATA REPOSITORY: All CT scans at this facility are submitted to the National Radiology Data Registry (NRDR) Dose Index Registry (DIR) with the [employer] ([employer]). RADIATION OPTIMIZATION: All CT scans at this facility use at least one of these dose optimization techniques: automated exposure control; mA and/or kV adjustment per patient size (includes targeted exams where dose is matched to clinical indication); or iterative reconstruction.
[2025-11-09] MEDS: Ketorolac 15 MG/ML VIAL IVP (09:08)
[2025-11-09] MEDS: Normal Saline - Diluent 50 ML VIAL IJ (09:11)
[2025-11-09] MEDS: Normal Saline Flush 10 ML SYR IVP (09:11)
[2025-11-09] MEDS: Omnipaque 350 MG/ML 500 ML BTL-Imaging package IJ (09:12)
[2025-11-09 09:34] VITALS: BP 154/82; PULSE 76; RESP 18; O2SAT 98
[2025-11-09] MEDS: Normal Saline 500 ML 1000 ML IV (09:34)
[2025-11-09 10:39] VITALS: BP 139/71; PULSE 60; RESP 18; O2SAT 99
[2025-11-09 11:41] VITALS: BP 138/70; PULSE 74; RESP 18; O2SAT 98
[2025-11-09 11:59] VITALS: BP 137/78; PULSE 78; RESP 18; O2SAT 99
== END 2025-11-09 12:00 | disposition home or self-care (01) ==
PROVIDERS: Emergency Provider Student in an Organized Health Care Education/Training Program; PCP Nurse Practitioner Family
DX: R10.A1 Flank pain, right side (principal); Z87.891 Personal history of nicotine dependence; Z98.84 Bariatric surgery status
CPT/HCPCS: 80053; 83690; 96374; 96375; 99285; 74177; 81003; 81015; 83735; 85025; J1171; J1885